=== PATIENT | female | born 1935 | race Caucasian/White ===

== ENCOUNTER 2021-03-23 15:11 | Emergency (ER) | payer MEDICARE, BC ==
[~2021-03-23] VITALS: Ht 160 cm; Wt 75.0 kg
--- NOTE | 2021-03-23 15:27 | NUR ---
PT BIB AMBULANCE FOR LEFT SIDED FLANK PAIN AND DYSURIA X A FEW DAYS. PT TRANSPORTED TO [facility] ED AND EN ROUTE WAS GIVEN 300 ML NS, AND 100 FENTANYL. PT VSS UPON ARRIVAL TO ED. PT CHANGED INTO GOWN AND PLACED IN [facility]. DR MCCRAY AT BS. PT EDUCATED ON ER PROCESS AND POC AND VERBALIZES UNDERSTANDING AT THIS TIME. CALL LIGHT IS WITHIN REACH OF PT.
[2021-03-23] MEDS ORDERED: ONDANSETRON 2MG/ML, 2ML IVPush ONE (15:30)
[2021-03-23] MEDS ORDERED: HYDROmorphone 1 MG/ML, 1ML INJ IV ONE (15:30)
[2021-03-23 15:51] LABS: BASOPHILS % (AUTO) 1 % (0-1); EOSINOPHILS % (AUTO) 2 % (1-7); LYMPHOCYTES % (AUTO) 14 % (22-44); MEAN CORPUSCULAR HEMOGLOBIN 22.6 pg (27.0-34.8); MEAN CORPUSCULAR HGB CONC 30.7 g/dL (32.4-35.8); MONOCYTES % (AUTO) 5 % (2-9); NEUTROPHILS % (AUTO) 79 % (42-75); PLATELET COUNT 336 x10^3/uL (130-400); RED BLOOD COUNT 3.92 x10^6/uL (3.82-5.3); RED CELL DISTRIBUTION WIDTH 18.2 % (9.6-15.2)
[2021-03-23 16:02] LABS: ALBUMIN 2.9 g/dL (3.4-5.0); ANION GAP 5 mmol/L (5-15); CALCIUM 8.5 mg/dL (8.5-10.1); CHLORIDE 105 mmol/L (98-107)
[2021-03-23 16:17] VITALS: BP 103/78
--- NOTE | 2021-03-23 16:18 | NUR ---
Break RN note: Pt incontinent of urine. Zainab care provided and linens changed. Pt straight cathed per order, tolerated well. Urine sample collected, labeled at bedside, walked to lab. Pt positioned for comfort in bed with blankets, denies other needs.
[2021-03-23 16:24] LABS: MICROSCOPIC NOT IND
--- NOTE | 2021-03-23 18:08 | NUR ---
PT DAUGHTER GINA NOTIFIED BY PHONE OF PT D/C. PT VSS AND UPDATED IN EMR PRIOR TO D/C. PT WHEELED TO LOBBY IN WHEELCHAIR FOR D/C HOME WITH D/C SUMMARY AND SCRIPTS. ALL QUESTIONS ANSWERED. PT DENIES ANY OTHER NEEDS PERTAINING TO THIS VISIT.
--- NOTE | 2021-03-23 19:16 | NUR ---
PT D/C WITH SCRIPTS IN CARE OF HER SON. PT EDUCATED ON NEED FOR ABX USE FOR 7 DAYS. PT VERBALIZES UNDERSTANDING. PT ASSISTED WITH GETTING DRESSED AND HELPED TO WHEELCHAIR FOR SAFE D/C TO PT SON CAR. PT DENIES ANY OTHER NEEDS PERTAINING TO THIS VISIT.
== END 2021-03-23 19:18 | disposition home or self-care (01) ==
LOC: ED 15:50
DX: K52.89 Other specified noninfective gastroenteritis and colitis (principal); R11.0 Nausea; J44.9 Chronic obstructive pulmonary disease, unspecified
CPT/HCPCS: 36415; 74176; 80048; 81003; 82040; 85025; 99284